=== PATIENT | female | born 1965 | race Caucasian/White ===

== ENCOUNTER → 2017-06-14 | Outpatient (CLI) | payer BC ==
[~2017-06-14] MED LIST: AMARYL2 MG PO; ASPIRIN81 M2 PO; AUGMENTIN875 MG PO; BASAGLAR K100 UNIT/1 SC; DIOVAN40 MG PO; DOMP10T PO; FLEXERIL5 MG PO; GLUCOPHAGE500 MG PO; LOPID600 MG; MOBIC15 MG PO; NEXIUM40 MG PO; NORCO 5/3251 TABLET PO; PROAIR HFA8.5 GM IH; PROZAC40 MG PO; SYNTHROID25 MCG PO; VICODIN,LORT1 TABLET; XANAX0.5 MG PO; XANAX1 MG; ZOCOR10 MG PO; ZOFRAN4 MG PO
== END | disposition home or self-care (01) ==
LOC: CDC 08:15
DX: Z01.810 Encounter for preprocedural cardiovascular examination (principal); M25.561 Pain in right knee; M17.11 Unilateral primary osteoarthritis, right knee
CPT/HCPCS: 93000

== ENCOUNTER 2017-06-18 21:51 | Inpatient (IN) | payer BC ==
[~2017-06-18] VITALS: Ht 162.6 cm; Wt 87.0 kg
[2017-06-19 09:57] VITALS: BP 131/60
[2017-06-19 10:21] LABS: POINT-OF-CARE METER ID UU14174212; POINT-OF-CARE USER ID AHSRSCSLC11
[2017-06-19 14:42] LABS: POINT-OF-CARE METER ID UU13113675; POINT-OF-CARE USER ID ADMKMM76
[2017-06-19 16:26] VITALS: BP 88/48
[2017-06-19 20:27] VITALS: BP 97/55
[2017-06-19 22:02] LABS: POINT-OF-CARE METER ID UU13113712
[2017-06-19 23:42] VITALS: BP 99/56
[2017-06-20 03:57] VITALS: BP 123/57
[2017-06-20 06:28] LABS: HEMATOCRIT 33.4 % (36.0-46.0); MCV 96.5 FL (83-99)
[2017-06-20 06:49] LABS: ANION GAP 12 MEQ/L (2-14); CHLORIDE 101 MEQ/L (99-109); GFR ESTIMATE (CALCULATED) > 59 mL/min/; GLUCOSE 166 mg/dL (70-99); POTASSIUM 4.4 MEQ/L (3.7-5.4); SAMPLE HEMOLYSIS CHECK 0; SAMPLE ICTERIC CHECK 0; SAMPLE LIPEMIA CHECK 0; SODIUM 136 MEQ/L (136-147); UREA NITROGEN (BUN) 13 mg/dL (9-23)
[2017-06-20 08:00] VITALS: BP 117/53
[2017-06-20 11:22] LABS: POINT-OF-CARE METER ID UU13113712
[2017-06-20 12:16] VITALS: BP 116/56
[2017-06-20 16:12] VITALS: BP 135/64
[2017-06-20 16:41] LABS: POINT-OF-CARE METER ID UU13113712
[2017-06-20 20:30] VITALS: BP 138/65
[2017-06-20 21:58] LABS: POINT-OF-CARE METER ID UU13113712
[2017-06-21 00:03] VITALS: BP 136/63
[2017-06-21 04:09] VITALS: BP 124/64
[2017-06-21 06:15] LABS: HEMATOCRIT 32.2 % (36.0-46.0); MCV 96.1 FL (83-99)
[2017-06-21 07:40] LABS: POINT-OF-CARE METER ID UU13113712
[2017-06-21 08:22] VITALS: BP 149/75
[2017-06-21 12:00] VITALS: BP 129/66
[2017-06-21 12:03] LABS: POINT-OF-CARE METER ID UU13113712
[2017-06-21] MEDS ORDERED: ELIQUIS2.5 MG PO (12:06)
[2017-06-21] MEDS ORDERED: HYDROCODON-ACE1 EAC7 PO (12:06)
[2017-06-21] MEDS ORDERED: HYDROMORPHONE HC2 MG PO (12:06)
== END 2017-06-21 15:02 | disposition home or self-care (01) | DRG 470 ==
LOC: ENRESERV 21:51 → 2SOUTH 06-19 09:25 → 3WEST 06-19 15:47
PROVIDERS: Orthopaedic Surgery
PROC: 0SRC0J9 Replacement of Right Knee Joint with Synthetic Substitute, Cemented, Open Approach (ICD-10-PCS; principal; 2017-06-19)
DX: M17.11 Unilateral primary osteoarthritis, right knee (principal); J44.9 Chronic obstructive pulmonary disease, unspecified; E11.9 Type 2 diabetes mellitus without complications; F32.9 Major depressive disorder, single episode, unspecified; E78.5 Hyperlipidemia, unspecified; E03.9 Hypothyroidism, unspecified; F41.9 Anxiety disorder, unspecified; Z82.49 Family history of ischemic heart disease and other diseases of the circulatory system; Z83.3 Family history of diabetes mellitus; Z68.32 Body mass index [BMI] 32.0-32.9, adult
CPT/HCPCS: 80048; 82948; 85014; 85018; J0131; J0690; J1170; J1815; J1885; J2250; J2795; J3010; J7050; L1820; Q0175